=== PATIENT | male | born 1995 | race African-American/Black ===

== ENCOUNTER 2017-05-25 05:09 | Emergency (ER) | payer SELFPAY ==
[~2017-05-25] VITALS: Ht 185.4 cm; Wt 66.0 kg
[2017-05-25 06:59] VITALS: BP 109/67
[2017-05-25] MEDS ORDERED: AZITHROMYCIN 500 MG TABLET PO ONE (07:00)
[2017-05-25] MEDS ORDERED: CEFTRIAXONE SODIUM 250 MG/VIAL IM ONE (07:00)
[2017-05-25] MEDS ORDERED: LIDOCAINE HCL 1% 20ML VIAL (Pyxis) INJ INFIL ONE (07:00)
== END 2017-05-25 07:10 | disposition home or self-care (01) ==
LOC: ER 05:09
DX: A64 Unspecified sexually transmitted disease (principal); N34.2 Other urethritis; F12.10 Cannabis abuse, uncomplicated
CPT/HCPCS: 96372; 99283; J0696; J3490; Z7610